=== PATIENT | female | born 1960 | race Hispanic/Latino ===

== ENCOUNTER 2016-10-21 15:55 | Emergency (ER) | payer MEDICAID, OTHER ==
[2016-10-21 16:08] VITALS: TEMP 99.8; BMI 28.3
[2016-10-21] MEDS ORDERED: Albuterol-Ipratrop 3 mg / 0.5 (3 ml) UD IH STA (16:47)
--- NOTE | 2016-10-21 16:54 | ED PDOC ---
Arrival/HPI - General Chief Complaint: Cough, Cold, Congestion Time Seen by Provider: 10/21/16 16:10 - History of Present Illness Narrative History of Present Illness (Text): 10/21/16 16:48 55-year-old female who denies any past medical history, presents emergency Department with 5 day duration, body aches, fevers, chills, chest congestion, dry cough, and sore throat. Patient denies any relieving or exacerbating factors. No other complaints. Past Medical History - Provider Review Nursing Documentation Reviewed: Yes - Infectious Disease Hx of Infectious Diseases: None - Tetanus Immunization Tetanus Immunization: Unknown - Past Medical History Past Medical History: No Previous - Psychiatric Hx Depression: No Hx Emotional Abuse: No Hx Physical Abuse: No Hx Substance Use: No - Surgical History Hx Appendectomy: Yes Hx Cholecystectomy: Yes Hx Orthopedic Surgery: Yes (R hand sx due to birthdefect) Hx Tubal Ligation: Yes - Anesthesia Hx Anesthesia: Yes Hx Anesthesia Reactions: No - Suicidal Assessment Feels Threatened In Home Enviroment: No Family/Social History Family/Social History: Unknown Family HX Smoking Status: Never Smoked Hx Alcohol Use: Yes Frequency of alcohol use: Socially Hx Substance Use: No Allergies/Home Meds Allergies/Adverse Reactions: Allergies No Known Allergies Allergy (Verified 09/13/13 14:46) Physical Exam - Physical Exam Narrative Physical Exam (Text): - Review of Systems Constitutional: Normal. absent: Fatigue, Weight Change, Fevers Eyes: Normal ENT: Denies pain with swallowing, denies tristhmus Respiratory: Back and chest pain with coughing. cough. Absent: SOB Cardiovascular: Chest congestion. absent: Palpitations, Syncope Gastrointestinal: Normal. absent: Abdominal Pain, Diarrhea, Nausea, Vomiting Genitourinary: Normal. absent: Dysuria, Frequency, Hematuria, vaginal bleeding Musculoskeletal: Normal. absent: Arthralgias, Back Pain, Neck Pain Skin: no rashes, no erythema Neurological: absent: Focal Weakness Endocrine: Normal Hemo/Lymphatic: Normal Psychiatric: No suicidal or homicidal ideations Physical exam Patient appears age appropriate in no distress, speaking full sentences without difficulty - Systems Exam Head: Present: Atraumatic, Normocephalic Pupils: Present: PERRL Extroacular Muscles: Present: EOMI Conjunctiva: Present: Normal Mouth: Present: Moist Mucous Membranes Neck: Present: Normal Range of Motion. No: MIDLINE TENDERNESS, Paraspinal Tenderness Respiratory/Chest: Present: Clear to Auscultation, Good Air Exchange. No: Respiratory Distress, Accessory Muscle Use, Tachypneic Cardiovascular: Present: Regular Rate and Rhythm, Normal S1, S2, Peripheal Pulses Present. No: Murmurs Abdomen: Present: Normal Bowel Sounds. No: Tenderness, Distention, Peritoneal Signs, Rebound, Guarding Back: Present: Normal Inspection. No: Midline Tenderness, Paraspinal Tenderness Upper Extremity: Present: Normal Inspection. No: Cyanosis, Edema Lower Extremity: Present: Normal Inspection. No: Edema Neurological: Present: GCS=15, Speech Normal, cranial nerves II through XII fully intact with no cerebellar abnormality, neurosensory fully intact. No focal neurological deficits. Skin: Present: Warm, Dry, Normal Color. No: Rashes Lymphatic: Present: OX3, NI, NC Psychiatric: Present: Alert, Oriented x 3, Normal Insight, Normal Concentration Vital Signs Reviewed: Yes Vital Signs Temp Pulse Resp BP Pulse Ox 10/21/16 19:18 81 18 131/86 98 10/21/16 18:00 79 18 124/76 98 10/21/16 16:08 99.8 F H 84 19 126/83 97 Temperature: Afebrile Blood Pressure: Normal Pulse: Regular Respiratory Rate: Normal Appearance: Positive for: Well-Appearing Pain Distress: None Mental Status: Positive for: Alert and Oriented X 3 - Systems Exam Pharnyx: Present: Normal, Other (No pain with hyoid manipulation). No: ERYTHEMA , EXUDATE, TONSILS ENLARGED, Peritonsilar Swelling, Uvular Deviation, Muffled/ Hoarse Voice, Strider, Soft Palate/Uvular Edema Medical Decision Making ED Course and Treatment: 10/21/16 16:57 55-year-old female in the emergency department with body aches, chills, chest discomfort during coughing. No acute findings on physical examination. EKG interpreted by ER physician. Normal sinus. No ST-segment elevations. Normal intervals. Differential diagnoses includes but not limited to: Viral illness versus bronchitis versus pneumonia. Based on history and physical, unlikely PE or ACS. 10/21/16 18:48 Chest xray interpreted by ED physician shows no pneumothorax, no cardiomegaly, no infiltrates EKG interpreted by ER physician. Normal sinus. No ST-segment elevations. Normal intervals. On reevaluation, patient states that she feels much better and is currently asymptomatic. Patient denies any chest pain, back pain, shortness of breath, dyspnea on exertion. Patient will be discharged home with antibiotics, inhaler, prednisone. Patient also advised to follow up with a race and sports book writer outpatient pt's HEART score low. One set of cardiac enzymes and EKG ordered I had a long discussion with patient that our initial evaluation has not shown evidence of a heart attack. Patient verbalized understanding that even if these tests are normal, symptoms may still be a warning sign of a future heart attack and it is very important for patient to arrange outpatient cardiology follow up Patient also been advised to stay in the emergency department for another set of cardiac enzymes Observation and further evaluation was offered as inpatient, but patient asked to be discharged home with outpatient follow up instead. Patient states she feels comfortable being discharged home with outpatient follow-up. Pt states she understands to return to the ER right away for new or worsening symptoms or for inability to f/u with PMD or specialist as instructed. Patient states that she fully agrees with and understands discharge instructions. States that she agrees with the plan and disposition. Verbalized and repeated discharge instructions and plan. I have given the patient opportunity to ask any additional questions. - Lab Interpretations Lab Results: 10/21/16 17:20 10/21/16 17:20 Lab Results 10/21/16 17:20: Sodium 138, Potassium 3.9, Chloride 100, Carbon Dioxide 27, Anion Gap 15, BUN 12, Creatinine 0.6, Est GFR ( Amer) > 60, Est GFR (Non- Af Amer) > 60, Random Glucose 84, Calcium 9.4, Total Bilirubin 0.7, AST 33, ALT 46, Alkaline Phosphatase 81, Troponin I < 0.01, Total Protein 8.0, Albumin 4.3, Globulin 3.6, Albumin/Globulin Ratio 1.2 10/21/16 17:20: PT 10.2, INR 0.94, APTT 33.1 H, D-Dimer, Quantitative 0.27 10/21/16 17:20: Influenza Typ A,B (EIA) Negative for flu a/b 10/21/16 17:20: WBC 3.7 L, RBC 5.41, Hgb 14.8, Hct 44.2, MCV 81.7, MCH 27.4, MCHC 33.5, RDW 14.3, Plt Count 160, MPV 12.7 H, Gran % 38.5 L, Lymph % (Auto) 47.0 H, [place] % (Auto) 12.9 H, Eos % (Auto) 0.8 L, Baso % (Auto) 0.8, Gran # 1.43 , Lymph # 1.8, [place] # 0.5, Eos # 0.0, Baso # 0.03 - Medication Orders Current Medication Orders: Discontinued Medications Albuterol/Ipratropium (Duoneb 3 Mg/0.5 Mg (3 Ml) Ud) 3 ml IH STAT STA Stop: 10/21/16 16:48 Last Admin: 10/21/16 17:03 Dose: 3 ml Disposition/Present on Arrival - Present on Arrival Any Indicators Present on Arrival: No History of DVT/PE: No History of Uncontrolled Diabetes: No Urinary Catheter: No History of Decub. Ulcer: No History Surgical Site Infection Following: None - Disposition Have Diagnosis and Disposition been Completed?: Yes Diagnosis: Cough Disposition: HOME/ ROUTINE Disposition Time: 18:53 Patient Plan: Discharge Patient Problems: Current Active Problems Problem Status Onset Cough Acute Condition: GOOD Discharge Instructions (ExitCare): Chest Pain (ED), Pleurisy (ED) Additional Instructions: PLEASE RETURN TO THE EMERGENCY DEPARTMENT FOR NEW OR WORSENING SYMPTOMS. RETURN RIGHT AWAY IF YOU CANNOT FOLLOW UP WITH YOUR PRIMARY CARE DOCTOR, CLINIC, OR SPECIALIST IN 1-2 DAYS. Prescriptions: Albuterol HFA [Ventolin HFA 90 mcg/actuation (8 g)] 2 puff IH Q4 #1 puff Azithromycin [Zithromax] 250 mg PO DAILY #6 tab Methylprednisolone [Medrol Dose Pack (21 tabs)] 4 mg PO DAILY #21 mg Referrals: Butch Sheehan MD [Primary Care Provider] - Follow up with primary Chalino Rai MD [Staff Provider] - Follow up with primary Forms: [employer] Visits Discharge (Croatian), WORK NOTE
[2016-10-21 17:24] LABS: ADD MANUAL DIFF? NO
[2016-10-21 17:31] LABS: BASO # 0.03 K/mm3 (0.0-2.0); BASO % 0.8 % (0.0-3.0); EOS % 0.8 % (1.5-5.0); GRAN # 1.43 (1.4-6.5); GRAN % 38.5 % (50.0-68.0); HEMATOCRIT 44.2 % (36.0-48.0); LYMPH # 1.8 (1.2-3.4); MEAN CELL VOLUME 81.7 fL (80.0-105.0); MEAN CORPUSCULAR HEMOGLOBIN 27.4 pg (25.0-35.0); MEAN CORPUSCULAR HGB CONC 33.5 g/dl (31.0-37.0); MEAN PLATELET VOLUME 12.7 fl (7.0-11.0); MONO # 0.5 (0.1-0.6); MONO % 12.9 % (1.0-6.0); PLATELET COUNT 160 10^3/uL (120.0-450.0); RED CELL DISTRIBUTION WIDTH 14.3 % (11.5-14.5); WHITE BLOOD COUNT 3.7 10^3/ul (4.5-11.0)
[2016-10-21 17:39] LABS: ALB/GLOB RATIO 1.2 (1.1-1.8); ALKALINE PHOSPHATASE 81 U/L (38-133); ALT/SGPT 46 U/L (7-56); AST/SGOT 33 U/L (15-39); BILIRUBIN,TOTAL 0.7 mg/dL (0.2-1.3); BLOOD UREA NITROGEN 12 mg/dL (7-21); CALCIUM 9.4 mg/dL (8.4-10.5); CARBON DIOXIDE 27 mmol/L (21-33); GFR AFRICAN-AMERICAN > 60; GLUCOSE,RANDOM 84 mg/dL (70-110); POTASSIUM 3.9 mmol/L (3.6-5.0); SODIUM 138 mmol/L (132-148)
[2016-10-21 17:45] LABS: CHLORIDE 100 mmol/L (98-107)
[2016-10-21 17:51] LABS: INR 0.94 (0.93-1.08); PARTIAL THROMBOPLASTIN TIME 33.1 Seconds (23.7-30.8)
[2016-10-21 17:52] LABS: TROPONIN I < 0.01 ng/mL
[2016-10-21 17:55] LABS: D DIMER 0.27 mg/L FEU (0-0.50)
[2016-10-21 18:11] VITALS: RESP 18; O2SAT 98
[2016-10-21 19:19] VITALS: BP 131/86; PULSE 81
--- NOTE | 2016-10-22 22:59 | CARD ---
APPROVED REPORT EKG Measurement Heart [id number] <Conclusion> Normal sinus rhythm Normal ECG
== END 2016-10-21 18:53 | disposition home or self-care (01) ==
LOC: ED 15:55
DX: R05 Cough (principal)